=== PATIENT | male | born 1965 | race Caucasian/White ===

== ENCOUNTER → 2016-06-29 | Outpatient (CLI) | payer MEDICAID ==
[~2016-06-29] MED LIST: ACET325T21 PO; CITA20TA9 PO; DEXA4TAB PO; DRON5CAP15 PO; HYDR-3138 PO; LEVE500T53 PO; LISI5TAB7 PO; SIMV10TA3 PO; SODI1TAB PO
== END | disposition home or self-care (01) ==
LOC: ROC 13:32
PROVIDERS: ATTEND Radiology Radiation Oncology
DX: C79.31 Secondary malignant neoplasm of brain (principal); C34.31 Malignant neoplasm of lower lobe, right bronchus or lung; Z87.891 Personal history of nicotine dependence
CPT/HCPCS: 99213; G0463

== ENCOUNTER → 2016-08-23 | Outpatient (CLI) | payer MEDICAID | END | disposition home or self-care (01) | LOC: ROC 14:36 | PROVIDERS: ATTEND Radiology Radiation Oncology | DX: C34.32 Malignant neoplasm of lower lobe, left bronchus or lung (principal); G93.89 Other specified disorders of brain; R59.1 Generalized enlarged lymph nodes; Z92.21 Personal history of antineoplastic chemotherapy; Z98.890 Other specified postprocedural states | CPT/HCPCS: 99213; G0463 ==

== ENCOUNTER → 2016-10-25 | Outpatient (CLI) | payer MEDICAID | END | disposition home or self-care (01) | LOC: ROC 08:13 | PROVIDERS: ATTEND Radiology Radiation Oncology | DX: C34.31 Malignant neoplasm of lower lobe, right bronchus or lung (principal) | CPT/HCPCS: 99213; G0463 ==

== ENCOUNTER → 2016-12-29 | Outpatient (CLI) | payer MEDICAID ==
[~2016-12-29] MED LIST changes: -HYDR-3138 PO; +HYDR-3237 PO
== END | disposition home or self-care (01) ==
LOC: ROC 13:11
PROVIDERS: ATTEND Radiology Radiation Oncology
DX: C34.31 Malignant neoplasm of lower lobe, right bronchus or lung (principal)
CPT/HCPCS: 99213; G0463

== ENCOUNTER → 2017-03-29 | Outpatient (CLI) | payer MEDICAID | END | disposition home or self-care (01) | LOC: ROC 03-27 14:54 | PROVIDERS: ATTEND Radiology Radiation Oncology | DX: C34.31 Malignant neoplasm of lower lobe, right bronchus or lung (principal) | CPT/HCPCS: 99213; G0463 ==

== ENCOUNTER → 2017-06-29 | Outpatient (CLI) | payer MEDICAID | LOC: ROC 07:46 | PROVIDERS: ATTEND Radiology Radiation Oncology | DX: Z02.9 Encounter for administrative examinations, unspecified (principal) ==

== ENCOUNTER → 2018-02-21 | Outpatient (CLI) | payer MEDICAID | END | disposition home or self-care (01) | LOC: ROC 09:29 | PROVIDERS: ATTEND Radiology Radiation Oncology | DX: Z08 Encounter for follow-up examination after completed treatment for malignant neoplasm (principal); C79.31 Secondary malignant neoplasm of brain; C34.31 Malignant neoplasm of lower lobe, right bronchus or lung | CPT/HCPCS: 99213; G0463 ==

== ENCOUNTER 2018-03-25 12:09 | Observation (INO) | payer MEDICARE, MEDICAID ==
[~2018-03-25] VITALS: Ht 185.4 cm; Wt 76.8 kg
[2018-03-25 14:25] LABS: BASOPHILS # (AUTO) 0.03 x10^3/uL (0-0.1); BASOPHILS % (AUTO) 1 % (0-1); EOSINOPHILS # (AUTO) 0.04 x10^3/uL (0-0.4); EOSINOPHILS % (AUTO) 1 % (1-7); LYMPHOCYTES # (AUTO) 0.57 x10^3/uL (1-3.4); LYMPHOCYTES % (AUTO) 10 % (22-44); MD NO; MEAN CORPUSCULAR HEMOGLOBIN 28.1 pg (27.5-34.5); MEAN CORPUSCULAR HGB CONC 32.9 g/dL (33.2-36.2); MEAN CORPUSCULAR VOLUME 85.5 fL (81-97); MEAN PLATELET VOLUME 6.4 fL (7.4-10.4); MONOCYTES # (AUTO) 0.72 x10^3/uL (0.2-0.8); MONOCYTES % (AUTO) 12 % (2-9); NEUTROPHILS # (AUTO) 4.43 x10^3/uL (1.8-6.8); NEUTROPHILS % (AUTO) 77 % (42-75); PLATELET COUNT 381 x10^3/uL (130-400); RED BLOOD COUNT 4.66 x10^6/uL (4.38-5.82); RED CELL DISTRIBUTION WIDTH 14.6 % (9.4-14.8)
[2018-03-25 14:29] LABS: ANION GAP 8 mmol/L (5-15); CALCIUM 7.9 mg/dL (8.5-10.1); CHLORIDE 107 mmol/L (98-107); CREATININE 0.68 mg/dL (0.7-1.3)
[2018-03-25 14:33] LABS: TROPONIN I < 0.015 ng/mL (0.000-0.045)
[2018-03-25] MEDS ORDERED: ALBU18HF INH (14:35)
[2018-03-25] MEDS ORDERED: QUET100T PO (14:35)
[2018-03-25] MEDS ORDERED: FURO40TA6 PO (14:36)
[2018-03-25] MEDS ORDERED: APIX5TAB PO (14:37)
[2018-03-25] MEDS ORDERED: FOLI-17 PO (14:37)
[2018-03-25] MEDS ORDERED: LORazepam 2 MG/ML, 1ML IVPush ONE (15:00)
[2018-03-25] MEDS ORDERED: LORazepam 2 MG/ML, 1ML ONE (15:06)
[2018-03-25] MEDS ORDERED: OMNIPAQUE 350 MG/ML, 75ML BOTTLE ONE (15:57)
[2018-03-25] MEDS ORDERED: GUAIFENESIN/COD200MG-20MG/10ML LIQUID PO PRN (16:00)
[2018-03-25] MEDS ORDERED: POLYETHYLENE GLYCOL 17 GM PACKET PO PRN (16:00)
[2018-03-25] MEDS ORDERED: DOCUSATE 100 MG CAPSULE PO PRN (16:00)
[2018-03-25] MEDS ORDERED: ACETAMINOPHEN 325 MG TABLET PO PRN (16:00)
[2018-03-25] MEDS ORDERED: ALBUTEROL SULFATE 2.5 MG/3 ML NPPB SCH (16:00)
[2018-03-25] MEDS ORDERED: morphine SULFATE 10 MG/ML, 1ML IVPush PRN (16:00)
[2018-03-25] MEDS ORDERED: OXYcodone IR 5MG TABLET PO PRN (16:00)
[2018-03-25] MEDS ORDERED: LORazepam 1MG TABLET PO PRN (16:00)
[2018-03-25] MEDS ORDERED: ONDANSETRON 2MG/ML, 2ML IVPush PRN (16:00)
[2018-03-25 16:49] VITALS: BP 122/71
[2018-03-25 19:05] VITALS: BP 99/64
[2018-03-25] MEDS: ALBUTEROL SULFATE 2.5 MG/3 ML NPPB SCH (19:07)
[2018-03-25] MEDS: QUETIAPINE 100MG TABLET PO SCH (20:51)
[2018-03-25] MEDS ORDERED: SIMVASTATIN 10 MG TABLET PO SCH (21:00)
[2018-03-25] MEDS ORDERED: CITALOPRAM 10 MG TABLET PO ONE (21:00)
[2018-03-26 01:22] VITALS: BP 96/58
[2018-03-26] MEDS ORDERED: NS + 20MEQ KCL 1,000 ML IV SCH (05:00)
[2018-03-26 05:35] LABS: INTERNATIONAL NORMALIZED RATIO 1.14 (0.93-1.1)
[2018-03-26 07:19] VITALS: BP 113/63
[2018-03-26] MEDS: ALBUTEROL SULFATE 2.5 MG/3 ML NPPB SCH ×2 (07:30→14:41)
[2018-03-26] MEDS ORDERED: hydrALAzine 20 MG/ML, 1ML IV PRN (08:30)
[2018-03-26] MEDS ORDERED: OXYcodone 5 MG/5 ML ORAL.SOL UDC PO PRN (08:30)
[2018-03-26] MEDS ORDERED: MEPERIDINE/PF 25MG/0.5ML IVPush PRN (08:30)
[2018-03-26] MEDS ORDERED: LABETALOL 5MG/ML, 20ML IV PRN (08:30)
[2018-03-26] MEDS ORDERED: DIPHENHYDRAMINE 50 MG/ML, 1ML IVPush PRN (08:30)
[2018-03-26] MEDS ORDERED: FENTANYL PF 100 MCG/2ML IV PRN (08:30)
[2018-03-26] MEDS ORDERED: HYDROmorphone 2 MG/ML, 1ML IVPush PRN (08:30)
[2018-03-26] MEDS ORDERED: PROMETHAZINE 25 MG/ML, 1ML IV PRN (08:30)
[2018-03-26] MEDS ORDERED: CITALOPRAM 20 MG TABLET PO SCH (09:00)
[2018-03-26] MEDS ORDERED: FOLIC ACID 1 MG TABLET PO SCH (09:00)
[2018-03-26] MEDS ORDERED: SENNA/DOCUSATE TABLET PO SCH (09:00)
[2018-03-26] MEDS ORDERED: FUROSEMIDE 40 MG TABLET PO SCH (09:00)
[2018-03-26] MEDS: QUETIAPINE 100MG TABLET PO SCH (09:01)
[2018-03-26] MEDS ORDERED: BUPIVACAINE/PF-EPI 0.5% 1:200K ONE (09:30)
[2018-03-26] MEDS ORDERED: MIDAZOLAM 1 MG/ML, 2ML ONE (09:50)
[2018-03-26] MEDS ORDERED: FENTANYL PF 250 MCG/5ML ONE (09:50)
[2018-03-26] MEDS ORDERED: SUCCINYLCHOLINE 20 MG/ML, 10ML ONE (10:38)
[2018-03-26] MEDS ORDERED: PROPOFOL 10 MG/ML, 20ML ONE (10:38)
[2018-03-26] MEDS ORDERED: ROCURONIUM 10MG/ML,5ML ONE (10:38)
[2018-03-26] MEDS ORDERED: CEFAZOLIN 1,000 MG ONE (10:38)
[2018-03-26] MEDS ORDERED: DEXAMETHASONE 4 MG/ML, 1ML ONE (10:38)
[2018-03-26] MEDS ORDERED: ONDANSETRON 2MG/ML, 2ML ONE (10:38)
[2018-03-26] MEDS ORDERED: GLYCOPYRROLATE 0.2MG/1ML, 5ML ONE (10:38)
[2018-03-26] MEDS ORDERED: NEOSTIGMINE 1 MG/ML, 10ML ONE (10:38)
[2018-03-26] MEDS ORDERED: OXYcodone 5 MG/5 ML ORAL.SOL UDC ONE (11:18)
[2018-03-26] MEDS ORDERED: IBUPROFEN 800 MG TABLET PO SCH (12:00)
[2018-03-26] MEDS ORDERED: OXYcodone IR 5MG TABLET PO PRN (12:00)
[2018-03-26] MEDS ORDERED: ACETAMINOPHEN 500 MG TABLET PO SCH (12:00)
[2018-03-26] MEDS ORDERED: OXYC5TAB3 PO (12:21)
[2018-03-26 13:26] VITALS: BP 104/55
== END 2018-03-26 18:04 | disposition home or self-care (01) ==
LOC: ED 13:51 → SUATTDRO 15:33 → 3NW 15:34 → OBSVTOIN 16:05 → INTOOBSV 16:05
PROVIDERS: ADMIT Family Medicine; ATTEND Family Medicine
DX: C34.90 Malignant neoplasm of unspecified part of unspecified bronchus or lung (principal); C79.31 Secondary malignant neoplasm of brain; G40.909 Epilepsy, unspecified, not intractable, without status epilepticus; E43 Unspecified severe protein-calorie malnutrition; E78.00 Pure hypercholesterolemia, unspecified; E78.5 Hyperlipidemia, unspecified; F12.90 Cannabis use, unspecified, uncomplicated; I10 Essential (primary) hypertension; J91.0 Malignant pleural effusion; J98.11 Atelectasis; Z87.891 Personal history of nicotine dependence
CPT/HCPCS: 32557; 36415; 71045; 71260; 80048; 82040; 83880; 84484; 85025; 85610; 85730; 86850; 86900; 93005; 93970; 94640; 96374; 99284; C1729; G0378; J0330; J0690; J1100; J2060; J2250; J2405; J2704; J2710; J3010; J3480; J3490; J7613; Q9967; 99285